=== PATIENT | female | born 1945 | race African-American/Black ===

== ENCOUNTER → 2017-07-30 | Outpatient (CLI) | payer MEDICARE, MEDICAID ==
[~2017-07-30] MED LIST: AMLODIPINE/BENA1 CA2 PO; ASPIRIN 81MG TA81 MG PO; BAYER ASPIRIN C81 MG PO; CHEW-IRON27 MG PO; CLONIDINE HYDR0.1 MG PO; CLONIDINE0.1 MG PO; GLIPIZIDE10 MG PO; HYDROCHLOROTHIA25 M1 PO; LISINOPRIL 20MG20 MG PO; METFORMIN 500M500 MG PO; METFORMIN500 MG PO; NAPROSYN500 M1 PO; POTASS CHL20 MEQ/15 PO; ROBAXIN-750750 MG PO; SIMVASTATIN20 MG PO; SOMA250 MG PO; TRAMADOL50 M1 PO; VERAPAMIL HCL120 MG PO
--- NOTE | 2017-08-04 08:26 | RADIOLOGY REPORT PS360 ---
DIG MAMM-SCREEN JED W/CAD CAD Screening COMPARISON: Digital mammograms 08/05/2016 and additional views left breast 08/22/2016 INDICATION: There is a history of breast cancer patient maternal aunt. TECHNIQUE: Standard CC and MLO images were obtained. R2 CAD reviewed. FINDINGS: Scattered fibroglandular densities are seen throughout both breasts. There are stable small benign-appearing nodular densities left breast. There are few benign-appearing calcination is in each breast. There is no suspicious lesion in either breast and no suspicious microcalcifications. IMPRESSION: Fibrofatty parenchyma with no suspicious lesion seen recommend yearly follow-up BI-RADS CATEGORY: 2_Benign RECOMMENDED FOLLOWUP: 12M 12 MONTH FOLLOW-UP (A letter has been sent to the patient regarding results of the study.)
== END ==
LOC: RAD 09:36
DX: Z12.31 Encounter for screening mammogram for malignant neoplasm of breast (principal)
CPT/HCPCS: G0202